=== PATIENT | male | born 1975 | race Caucasian/White ===

== ENCOUNTER → 2022-03-15 | Outpatient (CLI) | payer OTHER ==
--- NOTE | 2022-03-16 05:27 | MR ---
EXAMINATION TYPE: MR knee RT wo con DATE OF EXAM: 03/15/2022 COMPARISON: None HISTORY: Rt knee pain, tear Multiplanar multiecho imaging of the right knee performed without contrast. There is moderate sized knee joint effusion. The posterior cruciate ligament is intact. There appears to be complete tear of the anterior cruciate ligament near the attachment on the femur. The patella is intact. The collateral ligaments are intact. No evidence of a fracture. The lateral meniscus appears fairly normal. There is large vertical tear of the posterior horn of the medial meniscus extending to the inferior surface. The anterior horn medial meniscus appears intact. No evidence of a fracture. No significant bone edema. There is 4 mm area of minimal edema in the subc hondral patella. There is irregular decreased signal in the proximal tibial metaphysis that is likely a bone infarct. IMPRESSION: Knee joint effusion. Complete tear of the anterior cruciate ligament. Complex extensive tear of the posterior horn medial meniscus extending to the inferior surface.
== END | disposition home or self-care (01) ==
LOC: RADMRIMAIN 06:38
PROVIDERS: ATTEND Physician Assistant Medical
DX: S83.511A Sprain of anterior cruciate ligament of right knee, initial encounter (principal); M23.221 Derangement of posterior horn of medial meniscus due to old tear or injury, right knee